=== PATIENT | male | born 1940 | race Caucasian/White ===

== ENCOUNTER 2016-10-28 13:22 | Day surgery (SDC) | payer OTHER ==
[~2016-10-28] VITALS: Ht 165.1 cm; Wt 67.2 kg
[~2016-10-28 13:22] MED LIST: ADVAIR 100/501 DISK IH; ANTIVERT25 MG PO; LORCET 5-325 M1 EACH PO; MUCINEX FAST-M1 EAC2 PO; PROVENTIL,2.5 MG/3 M IH
== END 2016-10-28 15:05 | disposition home or self-care (01) ==
LOC: PAIN 13:22 → SDC 14:00 → PAIN 14:00
DX: M47.812 Spondylosis without myelopathy or radiculopathy, cervical region (principal); F41.9 Anxiety disorder, unspecified; G89.29 Other chronic pain; M54.2 Cervicalgia; M54.16 Radiculopathy, lumbar region; M51.36 Other intervertebral disc degeneration, lumbar region; J44.9 Chronic obstructive pulmonary disease, unspecified; F17.200 Nicotine dependence, unspecified, uncomplicated
CPT/HCPCS: 94640; J1030; J3010; S0020

== ENCOUNTER 2016-11-14 18:24 | Emergency (ER) | payer OTHER ==
[~2016-11-14] VITALS: Ht 165.1 cm; Wt 60.4 kg
[2016-11-14 19:45] VITALS: BP 112/72
== END 2016-11-14 19:47 | disposition home or self-care (01) ==
LOC: EME 18:24
DX: F10.229 Alcohol dependence with intoxication, unspecified (principal); F17.210 Nicotine dependence, cigarettes, uncomplicated; J44.9 Chronic obstructive pulmonary disease, unspecified
CPT/HCPCS: 99281; 99284

== ENCOUNTER 2016-12-07 13:30 | Day surgery (SDC) | payer OTHER | END 2016-12-07 15:26 | disposition home or self-care (01) | LOC: PAIN 13:30 → SDC 15:00 → PAIN 15:00 | DX: M47.812 Spondylosis without myelopathy or radiculopathy, cervical region (principal); M54.2 Cervicalgia; G89.29 Other chronic pain; M47.22 Other spondylosis with radiculopathy, cervical region; J44.9 Chronic obstructive pulmonary disease, unspecified; M51.16 Intervertebral disc disorders with radiculopathy, lumbar region; F17.210 Nicotine dependence, cigarettes, uncomplicated | CPT/HCPCS: J1030; J2250; J3010; S0020 ==

== ENCOUNTER 2016-12-14 11:26 | Day surgery (SDC) | payer OTHER ==
[~2016-12-14] VITALS: Ht 167.6 cm; Wt 55.3 kg
== END 2016-12-14 13:10 | disposition home or self-care (01) ==
LOC: PAIN 11:26 → SDC 14:00
DX: M47.812 Spondylosis without myelopathy or radiculopathy, cervical region (principal); M50.31 Other cervical disc degeneration, high cervical region; G89.29 Other chronic pain; M54.2 Cervicalgia; M47.26 Other spondylosis with radiculopathy, lumbar region; J44.9 Chronic obstructive pulmonary disease, unspecified; I10 Essential (primary) hypertension; F17.210 Nicotine dependence, cigarettes, uncomplicated
CPT/HCPCS: J1030; J2250; J3010; S0020

== ENCOUNTER 2017-01-13 12:49 | Day surgery (SDC) | payer OTHER ==
[~2017-01-13] VITALS: Ht 167.6 cm; Wt 55.3 kg
== END 2017-01-13 15:00 | disposition home or self-care (01) ==
LOC: PAIN 12:49 → SDC 13:30 → PAIN 15:00
DX: M47.816 Spondylosis without myelopathy or radiculopathy, lumbar region (principal); M54.5 Low back pain; G89.29 Other chronic pain; M43.17 Spondylolisthesis, lumbosacral region; M51.36 Other intervertebral disc degeneration, lumbar region; M85.80 Other specified disorders of bone density and structure, unspecified site; J44.9 Chronic obstructive pulmonary disease, unspecified; F17.200 Nicotine dependence, unspecified, uncomplicated; Z79.52 Long term (current) use of systemic steroids; Z79.891 Long term (current) use of opiate analgesic
CPT/HCPCS: 94640; J1030; J2250; J3010; S0020

== ENCOUNTER 2017-02-01 10:40 | Day surgery (SDC) | payer OTHER ==
[~2017-02-01] VITALS: Ht 167.6 cm; Wt 55.3 kg
[2017-02-07] MEDS ORDERED: CHANTIX1 MG PO (14:13)
== END 2017-02-01 11:59 | disposition home or self-care (01) ==
LOC: PAIN 10:40 → SDC 11:30 → PAIN 11:30
DX: M47.26 Other spondylosis with radiculopathy, lumbar region (principal); M51.16 Intervertebral disc disorders with radiculopathy, lumbar region; J44.9 Chronic obstructive pulmonary disease, unspecified; M47.812 Spondylosis without myelopathy or radiculopathy, cervical region; Z79.891 Long term (current) use of opiate analgesic; Z72.0 Tobacco use
CPT/HCPCS: J1030; J2250; J3010; S0020

== ENCOUNTER 2017-02-08 10:57 | Day surgery (SDC) | payer OTHER ==
[~2017-02-08] VITALS: Ht 167.6 cm; Wt 55.3 kg
[~2017-02-08 10:57] MED LIST changes: +CHANTIX1 MG PO
== END 2017-02-08 13:25 | disposition home or self-care (01) ==
LOC: PAIN 10:57 → SDC 11:30 → PAIN 13:25
DX: M47.26 Other spondylosis with radiculopathy, lumbar region (principal); M51.16 Intervertebral disc disorders with radiculopathy, lumbar region; M54.5 Low back pain; G89.29 Other chronic pain; M54.2 Cervicalgia; M85.80 Other specified disorders of bone density and structure, unspecified site; J44.9 Chronic obstructive pulmonary disease, unspecified; F12.90 Cannabis use, unspecified, uncomplicated; M43.17 Spondylolisthesis, lumbosacral region; F17.210 Nicotine dependence, cigarettes, uncomplicated; Z79.52 Long term (current) use of systemic steroids
CPT/HCPCS: J1030; J2250; J3010; S0020

== ENCOUNTER 2017-04-27 10:18 | Inpatient (IN) | payer OTHER ==
[~2017-04-27] VITALS: Ht 172.7 cm; Wt 64.0 kg
[2017-04-27 11:17] LABS: EOSINOPHIL (%) 0 % (0-5); IMMATURE GRANULOCYTE (%) 0.4 % (0.0-0.7); INSTRUMENT ABS NEUTROPHIL CT 5.6 K/uL; LYMPHOCYTE COUNT 1.1 K/uL (1.0-2.8); MCH 30.5 PG (29.0-34.0); MCV 92.5 FL (86-99); MEAN PLAT.VOLUME 10.2 uM^3 (9.0-12.4); MONOCYTE (%) 6.7 % (3-12); MONOCYTE COUNT 0.5 K/uL (0-0.8); NEUTROPHIL (%) 76.8 % (45-76); NEUTROPHIL COUNT 5.6 K/uL (1.8-6.4); PLATELET COUNT 236 K/uL (156-360); RBC DIS.WIDTH-CV 13.1 % (11.8-14.6); RBC DIS.WIDTH-SD 44.8 % (39-53); WHITE BLOOD COUNT 7.3 K/uL (4.1-10.2)
[2017-04-27 11:29] LABS: CHLORIDE 104 mEq/L (99-109); POTASSIUM 3.9 mEq/L (3.7-5.4); SODIUM 142 mEq/L (136-147)
[2017-04-27 11:30] LABS: MAGNESIUM 1.9 mg/dL (1.3-2.7)
[2017-04-27 11:31] LABS: GLUCOSE 114 mg/dL (70-99)
[2017-04-27 11:33] LABS: ANION GAP 13 MEQ/L (2-14); TOTAL BILIRUBIN 0.3 mg/dL (0.0-1.0)
[2017-04-27 11:35] LABS: ALKALINE PHOSPHATASE 88 IU/L (3-129); GFR ESTIMATE (CALCULATED) > 59 mL/min/ (58.99-99999)
[2017-04-27 11:36] LABS: UREA NITROGEN (BUN) 21 mg/dL (9-23)
[2017-04-27 16:07] VITALS: BP 139/69
[2017-04-27 19:28] VITALS: BP 140/60
[2017-04-27 23:45] VITALS: BP 163/76
[2017-04-28 04:15] VITALS: BP 151/85
[2017-04-28 08:13] VITALS: BP 162/78
[2017-04-28 11:47] VITALS: BP 144/67
[2017-04-28 16:32] VITALS: BP 132/61
[2017-04-28 19:47] VITALS: BP 140/74
[2017-04-28 23:55] VITALS: BP 174/82
[2017-04-29 03:29] VITALS: BP 133/71
[2017-04-29 06:42] LABS: EOSINOPHIL (%) 0 % (0-5); HEMATOCRIT 34.4 % (38.0-50.0); IMMATURE GRANULOCYTE (%) 0.6 % (0.0-0.7); IMMATURE GRANULOCYTE COUNT 0.1 K/uL; INSTRUMENT ABS NEUTROPHIL CT 11.9 K/uL; LYMPHOCYTE COUNT 0.8 K/uL (1.0-2.8); MCH 29.8 PG (29.0-34.0); MCHC 32.3 G/DL (30.0-36.0); MCV 92.2 FL (86-99); MEAN PLAT.VOLUME 10.4 uM^3 (9.0-12.4); MONOCYTE (%) 4.5 % (3-12); MONOCYTE COUNT 0.6 K/uL (0-0.8); NEUTROPHIL (%) 88.5 % (45-76); NEUTROPHIL COUNT 11.9 K/uL (1.8-6.4); PLATELET COUNT 236 K/uL (156-360); RBC DIS.WIDTH-CV 13.3 % (11.8-14.6); RBC DIS.WIDTH-SD 45.2 % (39-53); RED BLOOD COUNT 3.73 M/uL (4.00-5.50); WHITE BLOOD COUNT 13.4 K/uL (4.1-10.2)
[2017-04-29 07:09] LABS: ANION GAP 9 MEQ/L (2-14); CHLORIDE 108 MEQ/L (99-109); GFR ESTIMATE (CALCULATED) > 59 mL/min/ (58.99-99999); GLUCOSE 142 mg/dL (70-99); POTASSIUM 3.7 MEQ/L (3.7-5.4); SAMPLE HEMOLYSIS CHECK 0; SAMPLE ICTERIC CHECK 0; SAMPLE LIPEMIA CHECK 0; SODIUM 144 MEQ/L (136-147); UREA NITROGEN (BUN) 24 mg/dL (9-23)
[2017-04-29 07:49] VITALS: BP 140/72
[2017-04-29 11:53] VITALS: BP 157/79
[2017-04-29 16:20] VITALS: BP 164/82
[2017-04-29 19:26] VITALS: BP 172/73
[2017-04-30] VITALS (7 sets, daily range): BP systolic 137–189; BP diastolic 64–96
[2017-04-30 05:59] LABS: EOSINOPHIL (%) 0 % (0-5); HEMATOCRIT 33.8 % (38.0-50.0); IMMATURE GRANULOCYTE (%) 1.3 % (0.0-0.7); IMMATURE GRANULOCYTE COUNT 0.1 K/uL; INSTRUMENT ABS NEUTROPHIL CT 9.5 K/uL; LYMPHOCYTE COUNT 0.7 K/uL (1.0-2.8); MCH 30.2 PG (29.0-34.0); MCHC 32.8 G/DL (30.0-36.0); MCV 91.8 FL (86-99); MEAN PLAT.VOLUME 10.7 uM^3 (9.0-12.4); MONOCYTE (%) 5.2 % (3-12); MONOCYTE COUNT 0.6 K/uL (0-0.8); NEUTROPHIL (%) 86.6 % (45-76); NEUTROPHIL COUNT 9.5 K/uL (1.8-6.4); PLATELET COUNT 217 K/uL (156-360); RBC DIS.WIDTH-CV 13.3 % (11.8-14.6); RBC DIS.WIDTH-SD 45.2 % (39-53); RED BLOOD COUNT 3.68 M/uL (4.00-5.50); WHITE BLOOD COUNT 10.9 K/uL (4.1-10.2)
[2017-04-30 06:24] LABS: ANION GAP 8 MEQ/L (2-14); CHLORIDE 103 MEQ/L (99-109); GFR ESTIMATE (CALCULATED) > 59 mL/min/ (58.99-99999); GLUCOSE 140 mg/dL (70-99); POTASSIUM 3.7 MEQ/L (3.7-5.4); SAMPLE HEMOLYSIS CHECK 0; SAMPLE ICTERIC CHECK 0; SAMPLE LIPEMIA CHECK 0; SODIUM 140 MEQ/L (136-147); UREA NITROGEN (BUN) 23 mg/dL (9-23)
[2017-05-01 03:19] VITALS: BP 169/78
[2017-05-01 06:22] LABS: HEMATOCRIT 33.2 % (38.0-50.0); MCH 29.9 PG (29.0-34.0); MCHC 32.8 G/DL (30.0-36.0); MCV 91.2 FL (86-99); MEAN PLAT.VOLUME 10.7 uM^3 (9.0-12.4); PLATELET COUNT 216 K/uL (156-360); RBC DIS.WIDTH-CV 13.1 % (11.8-14.6); RBC DIS.WIDTH-SD 44.4 % (39-53); RED BLOOD COUNT 3.64 M/uL (4.00-5.50); WHITE BLOOD COUNT 6.2 K/uL (4.1-10.2)
[2017-05-01 06:48] LABS: ANION GAP 11 MEQ/L (2-14); CHLORIDE 101 MEQ/L (99-109); GFR ESTIMATE (CALCULATED) > 59 mL/min/ (58.99-99999); GLUCOSE 120 mg/dL (70-99); POTASSIUM 3.8 MEQ/L (3.7-5.4); SAMPLE HEMOLYSIS CHECK 0; SAMPLE ICTERIC CHECK 0; SAMPLE LIPEMIA CHECK 0; SODIUM 142 MEQ/L (136-147); UREA NITROGEN (BUN) 24 mg/dL (9-23)
[2017-05-01 08:00] VITALS: BP 180/78
[2017-05-01] MEDS ORDERED: LISINOPRIL40 MG PO (11:28)
[2017-05-01] MEDS ORDERED: OSELTAMIVIR PHO75 MG PO (11:28)
[2017-05-01] MEDS ORDERED: PREDNISONE20 MG PO ×2 (11:28→17:14)
[2017-05-01] MEDS ORDERED: PREDNISONE10 MG PO ×2 (11:28)
[2017-05-01 11:47] VITALS: BP 153/71
[2017-05-01 12:57] LABS: POINT-OF-CARE METER ID UU13113717
[2017-05-01 16:10] LABS: BASE EXCESS 8.1 mEq/L (-3 to +3); BICARBONATE 32.8 mEq/L (22-26); CARBOXY HGB 2.7 % (0-5); METHEMOGLOBIN 1.6 % (0-1.5); PCO2 45 mm Hg (35-45); PO2 78 mm Hg (80-100); pH 7.47 (7.35-7.45)
[2017-05-01 16:11] LABS: COMMENTS - BLOOD GASES A+C+; DEVICE NC; O2 FLOW 2 L/MIN; SITE RR
[2017-05-01] MEDS ORDERED: SPIRIVA RESPIMAT4 GM IH (17:14)
[2017-05-01] MEDS ORDERED: ADVAIR HFA120 INHAL1 IH (17:14)
[2017-05-01] MEDS ORDERED: AZITHROMYCIN500 M1 PO (17:14)
== END 2017-05-01 18:04 | disposition home or self-care (01) | DRG 189 ==
LOC: EME 10:18 → 5SOUTH 11:42 → EDOF 11:42 → ENRESERV 12:10 → CANRESERV 12:10 → EDOF 12:11 → CANRESERV 12:11 → ENRESERV 12:11 → EDOF 13:17 → ENRESERV 13:23 → 5SOUTH 15:09
PROVIDERS: Emergency Medicine; Internal Medicine
DX: J96.21 Acute and chronic respiratory failure with hypoxia (principal); J44.0 Chronic obstructive pulmonary disease with (acute) lower respiratory infection; J20.9 Acute bronchitis, unspecified; J44.1 Chronic obstructive pulmonary disease with (acute) exacerbation; J10.1 Influenza due to other identified influenza virus with other respiratory manifestations; D72.829 Elevated white blood cell count, unspecified; T38.0X5A Adverse effect of glucocorticoids and synthetic analogues, initial encounter; Z99.81 Dependence on supplemental oxygen; Z87.891 Personal history of nicotine dependence
CPT/HCPCS: 36600; 71010; 71020; 74176; 80048; 80053; 82803; 82948; 83605; 83735; 85025; 85027; 87040; 87070; 87205; 87502; 93005; 94640; 94640 76; 94644; 94760; 94799; 99202; 99281; 99285; J0696; J1100; J1650; J2920; J2930; J7030; J7512; J7644

== ENCOUNTER 2017-05-06 10:42 | Inpatient (IN) | payer OTHER ==
[~2017-05-06] VITALS: Ht 165.1 cm; Wt 53.8 kg
[~2017-05-06 10:42] MED LIST changes: +ADVAIR HFA120 INHAL1 IH; +AZITHROMYCIN500 M1 PO; +LISINOPRIL40 MG PO; +OSELTAMIVIR PHO75 MG PO; +PREDNISONE10 MG PO; +PREDNISONE20 MG PO; +SPIRIVA RESPIMAT4 GM IH
[2017-05-06 11:39] LABS: HEMATOCRIT 40.7 % (38.0-50.0); MCH 30.3 PG (29.0-34.0); MCHC 33.7 G/DL (30.0-36.0); RBC DIS.WIDTH-CV 12.9 % (11.8-14.6); RBC DIS.WIDTH-SD 42.6 % (39-53); WHITE BLOOD COUNT 10.8 K/uL (4.1-10.2)
[2017-05-06 11:48] LABS: PLATELET COUNT 392 K/uL (156-360); RED BLOOD COUNT 4.52 M/uL (4.00-5.50)
[2017-05-06 11:49] LABS: CHLORIDE 103 mEq/L (99-109); POTASSIUM 3.7 mEq/L (3.7-5.4); SODIUM 145 mEq/L (136-147)
[2017-05-06 11:51] LABS: GLUCOSE 101 mg/dL (70-99)
[2017-05-06 11:52] LABS: ANION GAP 11 MEQ/L (2-14)
[2017-05-06 11:55] LABS: GFR ESTIMATE (CALCULATED) > 59 mL/min/ (58.99-99999)
[2017-05-06 11:56] LABS: UREA NITROGEN (BUN) 31 mg/dL (9-23)
[2017-05-06 15:15] LABS: TROP-I INTERPRETATION NEGATIVE; TROPONIN-I < 0.01 ng/mL (0.0-0.30)
[2017-05-06 15:47] VITALS: BP 155/75
[2017-05-06 19:17] VITALS: BP 128/59
[2017-05-06 21:12] LABS: TROP-I INTERPRETATION NEGATIVE; TROPONIN-I < 0.01 ng/mL (0.0-0.30)
[2017-05-07] VITALS (7 sets, daily range): BP systolic 128–182; BP diastolic 63–82
[2017-05-07 02:57] LABS: TROP-I INTERPRETATION NEGATIVE; TROPONIN-I < 0.01 ng/mL (0.0-0.30)
[2017-05-08] VITALS (7 sets, daily range): BP systolic 143–165; BP diastolic 61–79
[2017-05-08 06:17] LABS: EOSINOPHIL (%) 0 % (0-5); HEMATOCRIT 38.7 % (38.0-50.0); IMMATURE GRANULOCYTE (%) 3.1 % (0.0-0.7); IMMATURE GRANULOCYTE COUNT 0.4 K/uL; INSTRUMENT ABS NEUTROPHIL CT 9.4 K/uL; LYMPHOCYTE COUNT 0.6 K/uL (1.0-2.8); MCH 29.3 PG (29.0-34.0); MCHC 32.3 G/DL (30.0-36.0); MCV 90.8 FL (86-99); MEAN PLAT.VOLUME 9.8 uM^3 (9.0-12.4); MONOCYTE (%) 8.3 % (3-12); MONOCYTE COUNT 0.9 K/uL (0-0.8); NEUTROPHIL COUNT 9.4 K/uL (1.8-6.4); PLATELET COUNT 376 K/uL (156-360); RBC DIS.WIDTH-CV 13.3 % (11.8-14.6); RBC DIS.WIDTH-SD 44.2 % (39-53); RED BLOOD COUNT 4.26 M/uL (4.00-5.50); WHITE BLOOD COUNT 11.4 K/uL (4.1-10.2)
[2017-05-08 06:41] LABS: ANION GAP 8 MEQ/L (2-14); CHLORIDE 103 MEQ/L (99-109); GFR ESTIMATE (CALCULATED) > 59 mL/min/ (58.99-99999); GLUCOSE 118 mg/dL (70-99); MAGNESIUM 2.2 mg/dl (1.3-2.7); POTASSIUM 3.9 MEQ/L (3.7-5.4); SAMPLE HEMOLYSIS CHECK 0; SAMPLE ICTERIC CHECK 0; SAMPLE LIPEMIA CHECK 0; SODIUM 142 MEQ/L (136-147); UREA NITROGEN (BUN) 34 mg/dL (9-23)
[2017-05-09 03:30] VITALS: BP 147/79
[2017-05-09 07:00] VITALS: BP 164/78
[2017-05-09 10:25] LABS: BASE EXCESS 7.8 mEq/L (-3 to +3); BICARBONATE 32.7 mEq/L (22-26); COMMENTS - BLOOD GASES A+C+; DEVICE NC; METHEMOGLOBIN 1.6 % (0-1.5); O2 FLOW 2 L/MIN; PCO2 46 mm Hg (35-45); PO2 67 mm Hg (80-100); SITE RR; pH 7.46 (7.35-7.45)
[2017-05-09 15:01] VITALS: BP 125/60
[2017-05-10 00:17] VITALS: BP 144/85
[2017-05-10 07:26] VITALS: BP 172/91
[2017-05-10] MEDS ORDERED: DUONEB 2.5-0.5 M3 ML AEROSOL (10:26)
[2017-05-10] MEDS ORDERED: LEVOFLOXACIN750 MG PO (10:26)
[2017-05-10] MEDS ORDERED: AZITHROMYCIN500 M1 PO (10:26)
[2017-05-10] MEDS ORDERED: AMLODIPINE BESYL5 MG PO (10:26)
[2017-05-10] MEDS ORDERED: PREDNISONE10 MG PO (11:01)
== END 2017-05-10 13:15 | disposition home or self-care (01) | DRG 190 ==
LOC: EME 10:42 → EDOF 13:28 → 5SOUTH 13:28 → ENRESERV 13:31 → 5SOUTH 15:43
PROVIDERS: Internal Medicine; Physician Assistant
DX: J44.1 Chronic obstructive pulmonary disease with (acute) exacerbation (principal); J96.21 Acute and chronic respiratory failure with hypoxia; I10 Essential (primary) hypertension; R91.1 Solitary pulmonary nodule; F17.210 Nicotine dependence, cigarettes, uncomplicated; Z99.81 Dependence on supplemental oxygen; Z68.1 Body mass index [BMI] 19.9 or less, adult
CPT/HCPCS: 36600; 71020; 71250; 80048; 82803; 83735; 84484; 85025; 85027; 87070; 87205; 93005; 94640; 94640 76; 94667; 94668; 94799; 99202; 99281; 99285; J1650; J2930; J7030; J7512